=== PATIENT | male | born 1985 | race Caucasian/White ===

== ENCOUNTER 2017-01-29 23:13 | Inpatient (IN) | payer OTHER ==
[~2017-01-29] VITALS: Ht 170.1 cm; Wt 82.0 kg
--- NOTE | ~2017-01-29 | CON ---
[place], [place] REPORT OF CONSULTATION NAME: STEVE FRAIRE UNIT #: [id number] ROOM: [facility] DOCTOR: RAISSA MAN ED.D) BIRTHDATE: [birth year] DOS: 01/30/2017 HISTORY OF PRESENT ILLNESS: The patient is a 31-year-old male referred by the hospitalist following a suicide attempt. At the present time, this patient is in the Intensive Care Unit at [facility]. He is and has four children. At the present time, he is not working. His family physician is Dr. Hopkins and his medical history is pertinent for substance abuse and major depressive disorder. He states he had been taking some Vicodin, ____ purchasing on the street. He does take Ambien and did overdose on Ambien and alcohol. He states he does not drink on a regular basis, however. He was awake, alert and oriented in all 3 spheres, but appeared to be quite depressed. He states that he does still feel suicidal and I suggested he needed to go to hospital for inpatient treatment. He agrees to do that. Ruby Linda from social service agency director is going to arrange placement at a facility, most likely in [place] since his insurance covers [place]. He did follow with Dr. Keller in the past and I believe was admitted to the Behavioral Health Unit at [facility] many years ago. He has had multiple suicide attempts in the past. I suggested that if he decides to leave against why he is still suicidal, he should be pink slipped; however, he was willing to go to the hospital for inpatient treatment and followup outpatient treatment. DIAGNOSES: Major depressive disorder, recurrent, severe. RECOMMENDATIONS: In my opinion, this patient would benefit from inpatient hospitalization on psychiatric floor. Thank you very much for this consult. RAISSA MAN ED.D CM:CONSTR:REPORT OF CONSULTATION 1107 01/30/17 [id number]
[2017-01-29 23:13] VITALS: BP 136/76
[~2017-01-29 23:13] MED LIST: ATARAX25 MG PO; CYCLOBENZAPRINE10 MG PO; MOTRIN800 MG PO; NAPROSYN500 MG PO; NKHM; PEN-VEE K500 MG PO; PREDNICOT20 MG PO; TYLENOL WITH CO1 TA1 PO; VOLTAREN75 MG PO
[2017-01-29 23:42] LABS: BASO % 0.4 % (0.0-1.0); EOS # 0.1 10*3/uL (0.0-0.4); EOS % 0.7 % (1.0-4.0); HEMATOCRIT 47.4 % (42.0-52.0); HEMOGLOBIN 15.9 g/dl (14.0-18.0); LYMPH # 2.7 10*3/uL (1.3-4.4); LYMPH % 24.7 % (27.0-41.0); MEAN CELL VOLUME 92.4 fl (80.0-94.0); MEAN CORPUSCULAR HGB CONC 33.5 g/dl (33.0-37.0); MONO # 1.1 10*3/uL (0.1-1.0); MONO % 9.8 % (3.0-9.0); NEUT # 7.1 10*3/uL (2.3-7.9); PLATELET COUNT AUTOMATED 307 10*3/uL (130-400); RED BLOOD COUNT 5.13 10*6/uL (4.50-5.90); RED CELL DISTRI WIDTH 12.9 % (0-14.5)
[2017-01-30] LABS: ALBUMIN 4.2 gm/dl (3.1-4.5); ALKALINE PHOSPHATASE 78 U/L (45-117); BILIRUBIN, TOTAL 0.3 mg/dl (0.2-1.0); BUN 19 mg/dl (7-24); CARBON DIOXIDE 24 mmol/L (21-32); CHLORIDE 107 mmol/L (98-107); EST GLOM FILT AFRICAN AMERICAN > 60 ml/min; GLUCOSE 98 mg/dL (65-99); POTASSIUM 4.8 mmol/L (3.5-5.1); SGOT/AST 22 IU/L (3-35); SGPT/ALT 27 U/L (12-78); SODIUM 143 mmol/L (136-145); TOTAL PROTEIN 7.8 gm/dL (6.4-8.2)
[2017-01-30 00:01] LABS: TROPONIN I < 0.015 ng/ml (<0.045)
[2017-01-30 00:46] LABS: BILIRUBIN NEGATIVE (NEGATIVE); BLOOD NEGATIVE (NEGATIVE); CLARITY CLEAR (CLEAR); COLOR YELLOW (YELLOW); GLUCOSE NEGATIVE (NEGATIVE); KETONE NEGATIVE (NEGATIVE); LEUKO ESTERASE NEGATIVE (NEGATIVE); NITRITE NEGATIVE (NEGATIVE); PH 5.5 (5.0-9.0); PROTEIN NEGATIVE (NEGATIVE); UROBILINOGEN 0.2 E.U./dl (0.2-1.0)
[2017-01-30 00:54] LABS: BACTERIA TRACE; EPITHELIAL CELLS 0-2; RBC 0-2 rbc/hpf (0-2); URINE AMPHETAMINES < 1000 (1000ng/ml); URINE BARBITURATES < 200 (200ng/ml); URINE COCAINE < 300 (300ng/ml); URINE REFLEX COMMENT NO (NO); WBC 0-2 wbc/hpf (0-5)
[2017-01-30 02:30] VITALS: BP 130/77; BP 166/87
[2017-01-30 04:00] VITALS: BP 93/47
[2017-01-30] MEDS ORDERED: AMBIEN5 MG PO (05:36)
[2017-01-30] MEDS ORDERED: MOBIC7.5 MG PO (05:37)
[2017-01-30 06:32] LABS: BASO % 0.2 % (0.0-1.0); HEMATOCRIT 43.5 % (42.0-52.0); HEMOGLOBIN 14.3 g/dl (14.0-18.0); IG # 0.1 10*3/uL (0.0-0.1); LYMPH # 1.4 10*3/uL (1.3-4.4); LYMPH % 8.8 % (27.0-41.0); MEAN CELL VOLUME 93.1 fl (80.0-94.0); MEAN CORPUSCULAR HGB 30.6 pg (27.0-31.0); MEAN CORPUSCULAR HGB CONC 32.9 g/dl (33.0-37.0); MONO # 1.4 10*3/uL (0.1-1.0); MONO % 8.7 % (3.0-9.0); NEUT # 12.8 10*3/uL (2.3-7.9); NEUT % 81.8 % (47.0-73.0); PLATELET COUNT AUTOMATED 254 10*3/uL (130-400); RED BLOOD COUNT 4.67 10*6/uL (4.50-5.90); RED CELL DISTRI WIDTH 12.8 % (0-14.5); WHITE BLOOD COUNT 15.6 10*3/uL (4.8-10.8)
[2017-01-30 06:54] LABS: HEMOGLOBIN A1c 5.4 % (4.8-5.6)
[2017-01-30 06:56] LABS: PROTHROMBIN TIME 10.7 SECONDS (9.0-12.4)
[2017-01-30 06:57] LABS: ALBUMIN 3.7 gm/dl (3.1-4.5); ALKALINE PHOSPHATASE 66 U/L (45-117); BILIRUBIN, TOTAL 0.3 mg/dl (0.2-1.0); BUN 13 mg/dl (7-24); CARBON DIOXIDE 25 mmol/L (21-32); CHLORIDE 113 mmol/L (98-107); CHOLESTEROL 162 mg/dL (<200); EST GLOM FILT AFRICAN AMERICAN > 60 ml/min; FREE T4 0.99 ng/dl (0.76-1.46); GLUCOSE 88 mg/dL (65-99); HDL CHOLESTEROL 51 mg/dl (40-60); LDL CHOLESTEROL 94 mg/dL (9-159); MAGNESIUM 2.1 mg/dL (1.5-2.1); PHOSPHOROUS 2.4 mg/dL (2.5-4.9); POTASSIUM 4.5 mmol/L (3.5-5.1); SGOT/AST 27 IU/L (3-35); SGPT/ALT 24 U/L (12-78); SODIUM 149 mmol/L (136-145); TOTAL PROTEIN 6.5 gm/dL (6.4-8.2); TRIGLYCERIDES 83 mg/dl (<150); VLDL CHOLESTEROL 17 mg/dL (6-40)
[2017-01-30 07:01] LABS: THYROID STIM HORMONE (HS) 0.174 uIU/ml (0.358-4.75)
[2017-01-30 07:21] LABS: VITAMIN D, 25-HYDROXY 23.5 ng/mL (30-100)
[2017-01-30 07:22] LABS: FOLIC ACID 6.78 ng/mL (>5.38)
[2017-01-30 08:00] VITALS: BP 105/60
[2017-01-30 12:00] VITALS: BP 116/64
[2017-01-30 16:00] VITALS: BP 139/84
[2017-01-30 20:00] VITALS: BP 138/74
[2017-01-31] VITALS: BP 139/64
[2017-01-31 04:00] VITALS: BP 131/71
[2017-01-31 05:32] LABS: BUN 12 mg/dl (7-24); CARBON DIOXIDE 27 mmol/L (21-32); CHLORIDE 106 mmol/L (98-107); EST GLOM FILT AFRICAN AMERICAN > 60 ml/min; GLUCOSE 123 mg/dL (65-99); POTASSIUM 4.1 mmol/L (3.5-5.1); SODIUM 143 mmol/L (136-145)
[2017-01-31 05:40] LABS: BASO % 0.4 % (0.0-1.0); EOS # 0.1 10*3/uL (0.0-0.4); EOS % 0.8 % (1.0-4.0); HEMATOCRIT 40.9 % (42.0-52.0); HEMOGLOBIN 13.4 g/dl (14.0-18.0); LYMPH # 2.2 10*3/uL (1.3-4.4); LYMPH % 24.2 % (27.0-41.0); MEAN CELL VOLUME 93.8 fl (80.0-94.0); MEAN CORPUSCULAR HGB 30.7 pg (27.0-31.0); MEAN CORPUSCULAR HGB CONC 32.8 g/dl (33.0-37.0); MEAN PLATELET VOLUME 10.5 fl (9.6-12.3); MONO # 0.9 10*3/uL (0.1-1.0); MONO % 9.6 % (3.0-9.0); NEUT % 64.6 % (47.0-73.0); PLATELET COUNT AUTOMATED 236 10*3/uL (130-400); RED BLOOD COUNT 4.36 10*6/uL (4.50-5.90); RED CELL DISTRI WIDTH 12.9 % (0-14.5); WHITE BLOOD COUNT 9.3 10*3/uL (4.8-10.8)
[2017-01-31 07:45] VITALS: BP 132/77
[2017-01-31 11:51] VITALS: BP 127/63
[2017-01-31] MEDS ORDERED: D-1000 185 MG-11 TAB PO (15:12)
[2017-01-31 16:00] VITALS: BP 120/68
== END 2017-01-31 17:55 | disposition home health service (06) | DRG 917 ==
LOC: ED 23:13 → EDHOLD 01-30 01:01 → ICCU 01-30 01:01
PROVIDERS: Internal Medicine Hospice and Palliative Medicine; Student in an Organized Health Care Education/Training Program
DX: T42.6X2A Poisoning by other antiepileptic and sedative-hypnotic drugs, intentional self-harm, initial encounter (principal); J96.01 Acute respiratory failure with hypoxia; E87.0 Hyperosmolality and hypernatremia; F33.9 Major depressive disorder, recurrent, unspecified; D72.829 Elevated white blood cell count, unspecified; E83.51 Hypocalcemia; E55.9 Vitamin D deficiency, unspecified; Z71.6 Tobacco abuse counseling; F17.200 Nicotine dependence, unspecified, uncomplicated; T39.392A Poisoning by other nonsteroidal anti-inflammatory drugs [NSAID], intentional self-harm, initial encounter; Y92.89 Other specified places as the place of occurrence of the external cause; Z87.828 Personal history of other (healed) physical injury and trauma; Z83.3 Family history of diabetes mellitus

== ENCOUNTER 2017-03-08 01:41 | Emergency (ER) | payer OTHER ==
[~2017-03-08] VITALS: Ht 182.8 cm; Wt 83.9 kg
[~2017-03-08 01:41] MED LIST changes: +AMBIEN5 MG PO; +D-1000 185 MG-11 TAB PO; +MOBIC7.5 MG PO
[2017-03-08] MEDS ORDERED: SEROQUEL100 MG PO (01:53)
[2017-03-08] MEDS ORDERED: DEPAKOTE DR500 MG PO (01:54)
[2017-03-08] MEDS ORDERED: DOXEPIN25 MG PO (01:55)
[2017-03-08 02:14] LABS: BASO % 0.3 % (0.0-1.0); EOS # 0.2 10*3/uL (0.0-0.4); EOS % 2.9 % (1.0-4.0); HEMATOCRIT 43.6 % (42.0-52.0); HEMOGLOBIN 14.6 g/dl (14.0-18.0); LYMPH # 2.8 10*3/uL (1.3-4.4); LYMPH % 40.1 % (27.0-41.0); MEAN CELL VOLUME 93.6 fl (80.0-94.0); MEAN CORPUSCULAR HGB 31.3 pg (27.0-31.0); MEAN CORPUSCULAR HGB CONC 33.5 g/dl (33.0-37.0); MEAN PLATELET VOLUME 9.5 fl (9.6-12.3); MONO # 0.6 10*3/uL (0.1-1.0); MONO % 8.9 % (3.0-9.0); NEUT # 3.3 10*3/uL (2.3-7.9); NEUT % 47.5 % (47.0-73.0); PLATELET COUNT AUTOMATED 236 10*3/uL (130-400); RED BLOOD COUNT 4.66 10*6/uL (4.50-5.90); RED CELL DISTRI WIDTH 13.7 % (0-14.5)
[2017-03-08 02:28] LABS: ALBUMIN 3.9 gm/dl (3.1-4.5); ALKALINE PHOSPHATASE 97 U/L (45-117); BILIRUBIN, TOTAL 0.2 mg/dl (0.2-1.0); BUN 9 mg/dl (7-24); CARBON DIOXIDE 25 mmol/L (21-32); CHLORIDE 108 mmol/L (98-107); EST GLOM FILT AFRICAN AMERICAN > 60 ml/min; GLUCOSE 101 mg/dL (65-99); POTASSIUM 3.9 mmol/L (3.5-5.1); SGOT/AST 16 IU/L (3-35); SGPT/ALT 27 U/L (12-78); SODIUM 144 mmol/L (136-145)
[2017-03-08 02:44] LABS: BILIRUBIN NEGATIVE (NEGATIVE); BLOOD NEGATIVE (NEGATIVE); CLARITY CLEAR (CLEAR); COLOR YELLOW (YELLOW); GLUCOSE NEGATIVE (NEGATIVE); KETONE NEGATIVE (NEGATIVE); LEUKO ESTERASE NEGATIVE (NEGATIVE); NITRITE NEGATIVE (NEGATIVE); PH 5.5 (5.0-9.0); PROTEIN NEGATIVE (NEGATIVE); SPECIFIC GRAVITY <= 1.005 (1.005-1.030); UROBILINOGEN 0.2 E.U./dl (0.2-1.0)
[2017-03-08 02:52] LABS: URINE AMPHETAMINES < 1000 (1000ng/ml); URINE BARBITURATES < 200 (200ng/ml); URINE COCAINE < 300 (300ng/ml)
[2017-03-08 03:00] LABS: RBC 0-2 rbc/hpf (0-2); URINE REFLEX COMMENT NO (NO)
== END 2017-03-08 04:15 | disposition short-term general hospital (02) ==
LOC: ED 01:41
PROVIDERS: Emergency Medicine Emergency Medical Services
DX: T43.591A Poisoning by other antipsychotics and neuroleptics, accidental (unintentional), initial encounter (principal); T43.011A Poisoning by tricyclic antidepressants, accidental (unintentional), initial encounter; R45.851 Suicidal ideations; F11.10 Opioid abuse, uncomplicated; F32.9 Major depressive disorder, single episode, unspecified; F17.200 Nicotine dependence, unspecified, uncomplicated; Y92.9 Unspecified place or not applicable